=== PATIENT | male | born 1980 | race American Indian/Alaskan Native ===

== ENCOUNTER 2018-04-30 14:28 | Inpatient (IN) | payer OTHER ==
--- NOTE | 2018-04-30 15:15 | Emergency Department Report ---
Chief Complaint: High BP Stated Complaint: RAPID HEART RATE, CHEST PAIN Time Seen by Provider: 04/30/18 15:05 - HPI History of Present Illness: PT IS 37 YO AA MALE WHO HAS NO MED INS AND A RESULT IS OFF HIS HIV MEDS AND BP MEDS. SUPPOSE TO BE ON TRUVADA, HCTZ AND ANOTHER ANTIVIRAL COMES TODAY WITH RAPID HR AND CP; STATES HE HAS THRUSH IN HIS MOUTH. POS NIGHT SWEATS. NO COUGH. 12 LEAD BIFAC. BLOCK, HR 110 WILL SEND TO MAIN ER FOR WORK UP - Exam Vital Signs: Vital Signs 04/30/18 14:31 Temperature 97.6 F Pulse Rate 115 H Respiratory 18 Rate Blood Pressure 161/98 O2 Sat by Pulse 100 Oximetry MSE screening note: Focused history and physical exam performed. Due to findings the following was ordered: ED Disposition for MSE Condition: Stable
[2018-04-30 15:24] LABS: Basophils % (Auto) 0.9 % (0.0-1.8); Eosinophils # (Auto) 0.1 K/mm3 (0.0-0.4); Eosinophils % (Auto) 3.3 % (0.0-4.3); Hematocrit 44.8 % (35.5-45.6); Hemoglobin 14.9 gm/dl (11.8-15.2); Lymphocytes # (Auto) 1.5 K/mm3 (1.2-5.4); Mean Corpuscular HGB Conc 33 % (32-34); Mean Corpuscular Volume 93 fl (84-94); Monocytes # (Auto) 0.3 K/mm3 (0.0-0.8); Monocytes % (Auto) 8.2 % (0.0-7.3); Platelet Count 139 K/mm3 (140-440); Red Blood Count 4.83 M/mm3 (3.65-5.03); Red Cell Distribution Width 13.9 % (13.2-15.2)
[2018-04-30 15:46] LABS: Alanine Aminotransferase 63 units/L (7-56); Albumin 3.6 g/dL (3.9-5); BUN/Creatinine Ratio 17; Blood Urea Nitrogen 19 mg/dL (9-20); Calcium 9.3 mg/dL (8.4-10.2); Hemolysis Index 19
--- NOTE | 2018-04-30 16:18 | XRay Report ---
FINAL REPORT PROCEDURE: Chest. TECHNIQUE: PA and lateral views. HISTORY: Cough. COMPARISON: No prior studies are available for comparison. FINDINGS: The heart and mediastinum appear normal. The lungs are clear and well expanded. There are no pleural effusions. There is a metallic BB in the left anterior chest wall. The regional skeleton appears inta ct. IMPRESSION: No evidence of acute cardiopulmonary disease. Soft tissue foreign body.
[2018-04-30 16:24] LABS: Bacteria,Urine 1+ /HPF (Negative); Bilirubin,Urine NEG (Negative); Blood,Urine MOD (Negative); Color,Urine Yellow (Yellow); Protein,Urine <15 mg/dL mg/dL (Negative); Sperm,Urine FEW /HPF (NP); Urobilinogen,Urine < 2.0 mg/dL (<2.0)
[2018-04-30 16:24] LABS: Chol/HDL Ratio 5.68 %; HDL Cholesterol 25 mg/dL (40-59); LDL Cholesterol,Direct 88 mg/dL (50-130)
--- NOTE | 2018-04-30 16:31 | Consultation ---
History of Present Illness Consult date: 04/30/18 Requesting physician: VINNIE BEGUM Consult reason: abnormal cardiac enzymes History of present illness: The pt is a 37 Yo male with a past medical history of HIV, HTN, RLE lymphedema, medical noncompliance. He is previously unknown to our practice. He presented with complaints of sore throat and "thrush" infection of his mouth. He also admits to generalized weakness and fatigue and intermittent palpitations for the past one month and "sinus congestion" for the past 3 weeks. He has not taken any prescription medications for the past 1 month (prescribed HCTZ and HIV medications). He denies any chest pain, SOB, n/v, diaphoresis, dizziness or syncope. He denies any prior cardiac evaluation. Troponin noted to be elevated x 1 and thus cardiology has been consulted. Past History Past Medical History: hypertension, other (HIV`) Medications and Allergies Allergies Allergy/AdvReac Type Severity Reaction Status Date / Time No Known Allergies Allergy Verified 05/06/15 23:56 Review of Systems Constitutional: fatigue, weakness, no weight loss, no weight gain, no fever, no chills, no sweats Ears, nose, mouth and throat: no ear pain, no nose pain, no sinus pressure, no sinus pain Cardiovascular: palpitations, high blood pressure, leg edema (chronic RLE lymphedema), no chest pain, no orthopnea, no edema, no syncope, no lightheadedne ss, no shortness of breath, no dyspnea on exertion Respiratory: no cough, no shortness of breath, no dyspnea on exertion, no congestion, no wheezing, no pain on inspiration Gastrointestinal: no abdominal pain, no nausea, no vomiting, no diarrhea, no constipation, no change in bowel habits Genitourinary Male: no dysuria, no hematuria, no flank pain, no discharge, no urinary frequency, no urinary hesitancy Musculoskeletal: no neck stiffness, no neck pain, no shooting arm pain, no arm numbness/tingling, no low back pain, no shooting leg pain Integumentary: no rash, no pruritis, no redness, no sores, no wounds Neurological: no head injury, no paralysis, no weakness, no parathesias, no numbness, no tingling, no seizures, no syncope Psychiatric: no anxiety Endocrine: no cold intolerance, no heat intolerance Hematologic/Lymphatic: no easy bruising, no easy bleeding Allergic/Immunologic: no urticaria, no wheezing Physical Examination Vital Signs Temp Pulse Resp BP Pulse Ox 97.6 F 115 H 18 161/98 100 04/30/18 14:31 04/30/18 14:31 04/30/18 14:31 04/30/18 14:31 04/30/18 14:31 General appearance: no acute distress HEENT: Positive: PERRL, Normocephaly, Mucus Membranes Moist Neck: Positive: neck supple, trachea midline Cardiac: Positive: Reg Rate and Rhythm, S1/S2 Lungs: Positive: clear to auscultation Neuro: Positive: Grossly Intact Abdomen: Positive: Soft. Negative: Tender Skin: Negative: Rash, Wound Musculoskeletal: No Pain Extremities: Present: edema (RLE lymphedema) Results 04/30/18 15:14 04/30/18 15:14 Cardiac Enzymes 04/30/18 Range/Units 15:14 AST 106 H (5-40) units/L Lipids 04/30/18 Range/Units 15:14 Triglycerides 238 H (2-149) mg/dL Cholesterol 142 (50-199) mg/dL HDL Cholesterol 25 L (40-59) mg/dL Cholesterol/HDL Ratio 5.68 % CBC 04/30/18 Range/Units 15:14 WBC 3.9 L (4.5-11.0) K/mm3 RBC 4.83 (3.65-5.03) M/mm3 Hgb 14.9 (11.8-15.2) gm/dl Hct 44.8 (35.5-45.6) % Plt Count 139 L (140-440) K/mm3 Lymph # 1.5 (1.2-5.4) K/mm3 [place] # 0.3 (0.0-0.8) K/mm3 Eos # 0.1 (0.0-0.4) K/mm3 Baso # 0.0 (0.0-0.1) K/mm3 Comprehensive Metabolic Panel 04/30/18 Range/Units 15:14 Sodium 136 L (137-145) mmol/L Potassium 4.5 (3.6-5.0) mmol/L Chloride 98.1 (98-107) mmol/L Carbon Dioxide 29 (22-30) mmol/L BUN 19 (9-20) mg/dL Creatinine 1.1 (0.8-1.5) mg/dL Glucose 75 (75-100) mg/dL Calcium 9.3 (8.4-10.2) mg/dL AST 106 H (5-40) units/L ALT 63 H (7-56) units/L Alkaline Phosphatase 72 (35-129) units/L Total Protein 10.2 H (6.3-8.2) g/dL Albumin 3.6 L (3.9-5) g/dL - Imaging and Cardiology Echo: pending EKG: report reviewed, image reviewed EKG interpretations - Telemetry EKG Rhythm: Sinus Rhythm - EKG Sinus rhythms and dysrhythmias: sinus rhythm AV and intraventricular conduction: right bundle branch block Assessment and Plan ECG with no acute ischemic changes, pt denies chest pain. Repeat troponin. If troponin remains elevated, recommend heparinization and ischemic evaluation in AM (stress v. LHC). Obtain echo. Optimize anti-hypertensive regimen. The patient has been seen in conjunction with Dr. ALFA Sanchez who agrees with the assessment and plan of care. - Patient Problems (1) Elevated troponin Current Visit: Yes Status: Acute (2) Palpitations Current Visit: Yes Status: Acute (3) Thrush, oral Current Visit: Yes Status: Acute (4) RBBB Current Visit: Yes Status: Acute (5) Uncontrolled hypertension Current Visit: Yes Status: Chronic (6) HIV (human immunodeficiency virus infection) Current Visit: Yes Status: Chronic (7) Medical non-compliance Current Visit: Yes Status: Chronic (8) Elevated liver enzymes Current Visit: Yes Status: Acute (9) Elevated TSH Current Visit: Yes Status: Acute
--- NOTE | 2018-04-30 16:52 | Emergency Department Report ---
HPI - General Chief Complaint: High BP Time Seen by Provider: 04/30/18 15:05 - HPI HPI: 37-year-old male presents to the emergency department with a few different complaints including elevated blood pressure, palpitations, thrush and some chronic abdominal pains. The patient has a history of hypertension and HIV and admits to medication noncompliance for the past year. The palpitations, thrush and elevated blood pressure have been more recent but he says that the abdominal pain has been going on for the past 4-6 months. He does not have any primary care or infectious disease physicians. He has not taken anything for his symptoms prior to presentation. No recent travel or sick contacts at home. He denies any chest pain, shortness of breath, fever, nausea or vomiting. ED Past Medical Hx - Past Medical History Previous Medical History?: Yes Hx Hypertension: Yes Hx HIV: Yes (no treatment) Additional medical history: lymphedema - Surgical History Past Surgical History?: No - Social History Smoking Status: Current Every Day Smoker Substance Use Type: Alcohol - Medications Home Medications: Home Medications Medication Instructions Recorded Confirmed Last Taken Type RX: No Known Home Medications [No 04/30/18 04/30/18 Unknown History Reported Home Medications] ED Review of Systems ROS: Stated complaint: RAPID HEART RATE, CHEST PAIN Other details as noted in HPI Comment: All other systems reviewed and negative Constitutional: denies: chills, fever Eyes: denies: eye pain, vision change ENT: throat pain (thrush), congestion Respiratory: denies: cough, shortness of breath Cardiovascular: palpitations. denies: chest pain, edema Gastrointestinal: abdominal pain (chronic). denies: vomiting Genitourinary: denies: urgency, dysuria Musculoskeletal: denies: back pain, arthralgia Skin: denies: rash, lesions Neurological: denies: headache, weakness Physical Exam - Physical Exam Vital Signs: Vital Signs 04/30/18 04/30/18 04/30/18 14:31 16:28 16:30 Temperature 97.6 F Pulse Rate 115 H 93 H Respiratory 18 15 19 Rate Blood Pressure 161/98 115/84 O2 Sat by Pulse 100 Oximetry Physical Exam: GENERAL: The patient is well-developed well-nourished. HEENT: Normocephalic. Atraumatic. Patient has moist mucous membranes. Oropharynx is clear without any tonsillar hypertrophy, erythema or exudates. EYES: Extraocular motions are intact. Pupils are equal and reactive to light bilaterally. NECK: Supple. Trachea is midline. CHEST/LUNGS: Clear to auscultation. There is no respiratory distress noted. HEART/CARDIOVASCULAR: Regular. There is mild tachycardia. There is no obvious murmur. ABDOMEN: Abdomen is soft, nontender. Patient has normal bowel sounds. There is no abdominal distention. SKIN: Skin is warm and dry. NEURO: The patient is awake, alert, and oriented. The patient is cooperative. The patient has no focal neurologic deficits. The patient has normal speech. MUSCULOSKELETAL: There is no tenderness or deformity. There is no limitation range of motion. There is no evidence of acute injury. ED Course Vital Signs 04/30/18 04/30/18 04/30/18 14:31 16:28 16:30 Temperature 97.6 F Pulse Rate 115 H 93 H Respiratory 18 15 19 Rate Blood Pressure 161/98 115/84 O2 Sat by Pulse 100 Oximetry ED Medical Decision Making - Lab Data Result diagrams: 04/30/18 15:14 04/30/18 15:14 - EKG Data -: EKG Interpreted by Vt EKG shows normal: sinus rhythm, axis, intervals, QRS complexes (right bundle branch block and left posterior fascicular block) Rate: tachycardia (107 bpm) - EKG Data When compared to previous EKG there are: previous EKG unavailable Interpretation: other (sinus tachycardia, right bundle branch block, left posterior fascicular block) - Radiology Data Radiology results: report reviewed, image reviewed interpreted by me: Chest x-ray does not show any pneumothorax, pleural effusion, pneumonia or obvious focal consolidation. PROCEDURE: CT angiogram chest with contrast. TECHNIQUE: Computerized tomographic angiography of the chest was performed after the IV injection of iodinated nonionic contrast including image processing. The image data was postprocessed using 2- dimensional multiplanar reformatted (MPR) and 3-dimensional (MIP and/or volume rendered) techniques. HISTORY: Chest pain, elevated D-dimer. COMPARISON: No prior studies are available for comparison. FINDINGS: The trachea and central bronchi appear normal. The lungs are clear and well expanded. There are no pleural effusions. The thoracic aorta has a normal caliber without evidence of dissection. The pulmonary arteries enhance normally. There are no filling defects to indicate pulmonary embolism. There is no mediastinal adenopathy. The heart size is normal. There is a suggestion of a low- attenuation lesion within the right lobe of the liver. This study was not designed to evaluate the liver and this is not a definite finding. This is seen on image 98 of series 2. A cavernous hemangioma is 1 possibility if the lesion is real. An ultrasound would be a simple means of further evaluation. The thoracic skeleton appears intact. IMPRESSION: No evidence of pulmonary embolism. Question vague area of diminished attenuation in the liver as discussed above. Transcribed By: MRM Dictated By: KATIE LEAL MD Electronically Authenticated By: KATIE LEAL MD Signed Date/Time: 04/30/182026 - Medical Decision Making This HIV positive patient presents with complaint of some palpitations, concern for thrush and some issues with uncontrolled blood pressure medication noncompliance. Patient was found to have a first positive troponin of 1.0. This was repeated within 1.5 hours to make sure there was not a fluke lab abnormality but the second/repeated troponin came back at 1.1. The patient does not complain of any chest pain at this time. He was seen in the emergency department by the cardiology service. Since the troponin did come back elevated and appears valid, the patient was placed on heparin drip and will be admitted to the hospital for further evaluation. The patient has been accepted for admission by the hospitalist, Dr. Mckeon. - Differential Diagnosis NSTEMI, Dysrythmia, AIDS, Pneumonia Critical Care Time: Yes Critical care time in (mins) excluding proc time.: 31 Critical care attestation.: If time is entered above; I have spent that time in minutes in the direct care of this critically ill patient, excluding procedure time. Critical care time spent on this patient during his initial evaluation, multiple evaluations, ordering an interpretation of labs and imaging, discussion with the cardiology and hospitalist services. Critical Care Time: 31 minutes ED Disposition Clinical Impression: Palpitations, Elevated troponin, NSTEMI (non-ST elevated myocardial infarction) HIV (human immunodeficiency virus infection) Qualifiers: HIV symptom status: unspecified Qualified Code(s): B20 - Human immunodeficiency virus [HIV] disease Disposition: OP ADMIT IP TO THIS HOSP Is pt being admited?: Yes Condition: Fair
[2018-04-30] MEDS ORDERED: HEPARIN 10,000 UNITS/10 ML IV ONE (18:00)
--- NOTE | 2018-04-30 18:14 | History and Physical Report ---
History of Present Illness Chief complaint: I dont feel good History of present illness: 37 YO Male with Nicotine Dependence, HIV, HTN, Medication Noncompliance presents to ED for evaluation. Pt states that he has not been feeling well for the past 3-4 weeks. Pt reports chest palpitations, elevated blood pressure, abdominal discomfort, and pain upon swallowing. Pt acknowledges noncompliance with all medication for the past 1 year. Pt transported to [facility] for further care and evaluation. Pt seen and evaluated in ED and found to have Elevated troponin consistent with NSTEMI. Cardiology consulted in ED. Pt initiated on heparin drip protocol, and admitted to telemetry. Pt denies fever, chills, CP, NVD, Trauma, BRBPR, productive cough, or recent ill contacts. Past History Past Medical History: HIV/AIDS, hypertension, other (HIV`) Past Surgical History: No surgical history (reviewed) Social history: single, smoking. denies: prescription drug abuse, IV drug use Family history: hypertension Medications and Allergies Allergies Allergy/AdvReac Type Severity Reaction Status Date / Time No Known Allergies Allergy Verified 05/06/15 23:56 Home Medications Medication Instructions Recorded Confirmed Last Taken Type No Known Home Medications [No 04/30/18 04/30/18 Unknown History Reported Home Medications] Active Meds: Active Medications Heparin Sodium/Sodium Chloride (Heparin/ 0.45% Nacl-25,000 Unit/500 Ml) 25,000 unit in 500 mls @ 25.583 mls/hr IV TITRATE ANITRA; Protocol Review of Systems Constitutional: no weight loss, no weight gain, no fever Ears, nose, mouth and throat: odynophagia, no ear pain, no ear discharge, no decreased hearing, no nasal congestion Cardiovascular: palpitations, no chest pain, no orthopnea, no dyspnea on exertion, no paroxysmal nocturnal dyspnea Respiratory: no cough, no cough with sputum, no excessive sputum Gastrointestinal: no nausea, no vomiting, no diarrhea Genitourinary Male: no hematuria, no flank pain, no discharge Rectal: no pain, no incontinence, no bleeding Musculoskeletal: no neck stiffness, no neck pain, no shooting arm pain, no arm numbness/tingling Integumentary: no rash, no pruritis, no redness, no sores, no wounds Neurological: no transient paralysis, no paralysis, no weakness, no parathesias, no numbness Psychiatric: no anxiety, no memory loss, no change in sleep habits, no sleep disturbances, no insomnia Endocrine: no cold intolerance, no heat intolerance, no polyphagia, no excessive thirst Hematologic/Lymphatic: no easy bruising, no easy bleeding Allergic/Immunologic: no urticaria, no allergic rhinitis, no wheezing Exam - Constitutional Vitals: Temp Pulse Resp BP Pulse Ox 97.6 F 90 14 122/83 94 04/30/18 14:31 04/30/18 17:15 04/30/18 17:15 04/30/18 17:15 04/30/18 17:15 General appearance: Present: mild distress - EENT Eyes: Present: PERRL ENT: hearing intact, clear oral mucosa - Neck Neck: Present: supple, normal ROM - Respiratory Respiratory effort: normal Respiratory: bilateral: CTA - Cardiovascular Heart Sounds: Present: S1 & S2. Absent: rub, click - Extremities Extremities: pulses symmetrical, No edema Peripheral Pulses: within normal limits - Abdominal General gastrointestinal: Present: soft, non-tender, non-distended, normal bowel sounds Male genitourinary: Present: normal - Integumentary Integumentary: Present: clear, warm, dry - Musculoskeletal Musculoskeletal: gait normal, strength equal bilaterally - Psychiatric Psychiatric: appropriate mood/affect, intact judgment & insight - Neurologic Neurologic: CNII-XII intact, moves all extremities Results - Labs CBC & Chem 7: 04/30/18 15:14 04/30/18 15:14 Labs: Abnormal lab results 04/30/18 04/30/18 04/30/18 Range/Units 15:14 15:14 15:14 WBC 3.9 L (4.5-11.0) K/mm3 Plt Count 139 L (140-440) K/mm3 Lymph % (Auto) 38.0 H (13.4-35.0) % [place] % (Auto) 8.2 H (0.0-7.3) % D-Dimer (0-234) ng/mlDDU Sodium 136 L (137-145) mmol/L AST 106 H (5-40) units/L ALT 63 H (7-56) units/L Troponin T 1.000 H* (0.00-0.029) ng/mL Total Protein 10.2 H (6.3-8.2) g/dL Albumin 3.6 L (3.9-5) g/dL Triglycerides 238 H (2-149) mg/dL HDL Cholesterol 25 L (40-59) mg/dL TSH 4.510 H (0.270-4.200) mlU/mL 04/30/18 04/30/18 Range/Units 16:28 17:21 WBC (4.5-11.0) K/mm3 Plt Count (140-440) K/mm3 Lymph % (Auto) (13.4-35.0) % [place] % (Auto) (0.0-7.3) % D-Dimer 1408.77 H (0-234) ng/mlDDU Sodium (137-145) mmol/L AST (5-40) units/L ALT (7-56) units/L Troponin T 1.110 H* (0.00-0.029) ng/mL Total Protein (6.3-8.2) g/dL Albumin (3.9-5) g/dL Triglycerides (2-149) mg/dL HDL Cholesterol (40-59) mg/dL TSH (0.270-4.200) mlU/mL Assessment and Plan - Patient Problems (1) NSTEMI (non-ST elevated myocardial infarction) Current Visit: Yes Status: Acute Plan to address problem: Admit to telemetry, cardiology consulted in ED, initiated heparin drip therapy, serial cardiac enzymes, supportive care (2) Nicotine dependence Current Visit: Yes Status: Acute Qualifiers: Nicotine product type: cigarettes Plan to address problem: smoking cessation counseling, supportive care. (3) HIV (human immunodeficiency virus infection) Current Visit: Yes Status: Chronic Plan to address problem: Outpatient ID F/U care, Pt counseled regarding medication noncompliance (4) DVT prophylaxis Current Visit: Yes Status: Acute Plan to address problem: SCD to BLE while in bed
[2018-04-30] MEDS ORDERED: PERCOCET 5/325 PO PRN (18:17)
[2018-04-30] MEDS ORDERED: SODIUM CHLORIDE FLUSH SYRINGE 10 ML IV PRN (18:17)
[2018-04-30] MEDS ORDERED: PROVENTIL IH PRN (18:17)
[2018-04-30] MEDS ORDERED: ZOFRAN IV PRN (18:17)
[2018-04-30] MEDS ORDERED: TYLENOL PO PRN (18:17)
[2018-04-30 18:27] LABS: INR 0.94 (0.87-1.13)
[2018-04-30 18:28] LABS: Partial Thromboplastin Time 34.8 Sec. (24.2-36.6)
[2018-04-30] MEDS: HEPARIN/ 0.45% NACL-25,000 UNIT/500 ML 25,000 UNIT/500 ML BAG IV SCH (19:45)
--- NOTE | 2018-04-30 20:27 | Cat Scan Report ---
FINAL REPORT PROCEDURE: CT angiogram chest with contrast. TECHNIQUE: Computerized tomographic angiography of the chest was performed after the IV injection of iodinated nonionic contrast including image processing. The image data was postprocessed using 2-dim ensional multiplanar reformatted (MPR) and 3-dimensional (MIP and/or volume rendered) techniques. HISTORY: Chest pain, elevated D-dimer. COMPARISON: No prior studies are available for comparison. FINDINGS: The trachea and central bronchi appear normal. The lungs are clear and well expanded. There are no pl eural effusions. The thoracic aorta has a normal caliber without evidence of dissection. The pulmonar y arteries enhance normally. There are no filling defects to indicate pulmonary embolism. There is no mediastinal adenopathy. The heart size is normal. There is a suggestion of a low-attenuation lesion within the right lobe of the liver. This study was not designed to evaluate the liver and this is not a definite finding. This is seen on image 98 of series 2. A cavernous hemangioma is 1 possibility if the lesion is real. An ultrasound would be a simple means of further evaluation. The thoracic skelet on appears intact. IMPRESSION: No evidence of pulmonary embolism. Question vague area of diminished attenuation in the liver as disc ussed above.
[2018-04-30] MEDS: SODIUM CHLORIDE FLUSH SYRINGE 10 ML IV SCH (21:14)
[2018-05-01] MEDS: SODIUM CHLORIDE FLUSH SYRINGE 10 ML IV SCH ×2 (09:44→21:54)
--- NOTE | 2018-05-01 10:13 | Progress Note ---
Assessment and Plan Assessment and plan: NSTEMI. Patient with elevated troponin. Cardiology following. Follow-up echocardiogram. The echocardiogram is abnormal with reduced EF, we'll likely proceed with catheterization. However if echocardiogram normal, plans for stress thallium in a.m. I discussed case with cardiology. Oral candidiasis. Diflucan. Accelerated hypertension. Continue anti-hypertensive medications. HIV. Medical noncompliance. Patient has been counseled with the importance of medications. Hypothyroidism. TSH elevated. Check T3-T4. Consider starting Synthroid. History Interval history: No new issues overnight. Hospitalist Physical - Constitutional Vitals: Temp Pulse Resp BP Pulse Ox 98.5 F 86 16 129/85 97 05/01/18 07:30 05/01/18 07:30 05/01/18 07:30 05/01/18 07:30 05/01/18 07:30 General appearance: Present: mild distress - EENT Eyes: Present: PERRL, EOM intact ENT: hearing intact, clear oral mucosa, dentition normal - Neck Neck: Present: supple, normal ROM - Respiratory Respiratory effort: normal Respiratory: bilateral: CTA - Cardiovascular Rhythm: regular Heart Sounds: Present: S1 & S2. Absent: gallop, rub - Extremities Extremities: no ischemia, No edema, Full ROM - Abdominal General gastrointestinal: soft, non-tender, non-distended, normal bowel sounds - Integumentary Integumentary: Present: clear, warm, dry - Neurologic Neurologic: CNII-XII intact, moves all extremities Results - Labs CBC & Chem 7: 04/30/18 15:14 04/30/18 15:14 Labs: Laboratory Last Values WBC 3.9 K/mm3 (4.5-11.0) L 04/30/18 15:14 RBC 4.83 M/mm3 (3.65-5.03) 04/30/18 15:14 Hgb 14.9 gm/dl (11.8-15.2) 04/30/18 15:14 Hct 44.8 % (35.5-45.6) 04/30/18 15:14 MCV 93 fl (84-94) 04/30/18 15:14 MCH 31 pg (28-32) 04/30/18 15:14 MCHC 33 % (32-34) 04/30/18 15:14 RDW 13.9 % (13.2-15.2) 04/30/18 15:14 Plt Count 139 K/mm3 (140-440) L 04/30/18 15:14 Lymph % (Auto) 38.0 % (13.4-35.0) H 04/30/18 15:14 [place] % (Auto) 8.2 % (0.0-7.3) H 04/30/18 15:14 Eos % (Auto) 3.3 % (0.0-4.3) 04/30/18 15:14 Baso % (Auto) 0.9 % (0.0-1.8) 04/30/18 15:14 Lymph # 1.5 K/mm3 (1.2-5.4) 04/30/18 15:14 [place] # 0.3 K/mm3 (0.0-0.8) 04/30/18 15:14 Eos # 0.1 K/mm3 (0.0-0.4) 04/30/18 15:14 Baso # 0.0 K/mm3 (0.0-0.1) 04/30/18 15:14 Seg Neutrophils % 49.6 % (40.0-70.0) 04/30/18 15:14 Seg Neutrophils # 1.9 K/mm3 (1.8-7.7) 04/30/18 15:14 PT 13.0 Sec. (12.2-14.9) 04/30/18 16:00 INR 0.94 (0.87-1.13) 04/30/18 16:00 APTT 34.8 Sec. (24.2-36.6) 04/30/18 16:00 D-Dimer 1408.77 ng/mlDDU (0-234) H 04/30/18 16:28 Heparin Anti-Xa Level 0.34 U.I./ml (0.3-0.7) 05/01/18 09:31 Sodium 136 mmol/L (137-145) L 04/30/18 15:14 Potassium 4.5 mmol/L (3.6-5.0) 04/30/18 15:14 Chloride 98.1 mmol/L (98-107) 04/30/18 15:14 Carbon Dioxide 29 mmol/L (22-30) 04/30/18 15:14 Anion Gap 13 mmol/L 04/30/18 15:14 BUN 19 mg/dL (9-20) 04/30/18 15:14 Creatinine 1.1 mg/dL (0.8-1.5) 04/30/18 15:14 Estimated GFR > 60 ml/min 04/30/18 15:14 BUN/Creatinine Ratio 17 % 04/30/18 15:14 Glucose 75 mg/dL (75-100) 04/30/18 15:14 Calcium 9.3 mg/dL (8.4-10.2) 04/30/18 15:14 Total Bilirubin 0.50 mg/dL (0.1-1.2) 04/30/18 15:14 AST 106 units/L (5-40) H 04/30/18 15:14 ALT 63 units/L (7-56) H 04/30/18 15:14 Alkaline Phosphatase 72 units/L (35-129) 04/30/18 15:14 Troponin T 1.110 ng/mL (0.00-0.029) H* 04/30/18 17:21 Total Protein 10.2 g/dL (6.3-8.2) H 04/30/18 15:14 Albumin 3.6 g/dL (3.9-5) L 04/30/18 15:14 Albumin/Globulin Ratio 0.5 % 04/30/18 15:14 Triglycerides 238 mg/dL (2-149) H 04/30/18 15:14 Cholesterol 142 mg/dL (50-199) 04/30/18 15:14 LDL Cholesterol Direct 88 mg/dL (50-130) 04/30/18 15:14 HDL Cholesterol 25 mg/dL (40-59) L 04/30/18 15:14 Cholesterol/HDL Ratio 5.68 % 04/30/18 15:14 TSH 4.510 mlU/mL (0.270-4.200) H 04/30/18 15:14 Urine Color Yellow (Yellow) 04/30/18 15:40 Urine Turbidity Clear (Clear) 04/30/18 15:40 Urine pH 6.0 (5.0-7.0) 04/30/18 15:40 Ur Specific [place] 1.009 (1.003-1.030) 04/30/18 15:40 Urine Protein <15 mg/dl mg/dL (Negative) 04/30/18 15:40 Urine Glucose (UA) Neg mg/dL (Negative) 04/30/18 15:40 Urine Ketones Neg mg/dL (Negative) 04/30/18 15:40 Urine Blood Mod (Negative) 04/30/18 15:40 Urine Nitrite Neg (Negative) 04/30/18 15:40 Urine Bilirubin Neg (Negative) 04/30/18 15:40 Urine Urobilinogen < 2.0 mg/dL (<2.0) 04/30/18 15:40 Ur Leukocyte Esterase Neg (Negative) 04/30/18 15:40 Urine WBC (Auto) 2.0 /HPF (0.0-6.0) 04/30/18 15:40 Urine RBC (Auto) 7.0 /HPF (0.0-6.0) 04/30/18 15:40 Urine Bacteria (Auto) 1+ /HPF (Negative) 04/30/18 15:40 Urine Sperm Few /HPF ([employer]) 04/30/18 15:40
--- NOTE | 2018-05-01 11:22 | Progress Note ---
Assessment and Plan Troponin elevated but pt. continues to deny chest pain and remains hemodynamically stable. Sinus rhythm on the monitor. Await echo findings. Plan for lexiscan thallium stress test in am. The patient has been seen in conjunction with Dr. ALFA Sanchez who agrees with the assessment and plan of care. - Patient Problems (1) Elevated troponin Current Visit: Yes Status: Acute (2) Palpitations Current Visit: Yes Status: Acute (3) Thrush, oral Current Visit: Yes Status: Acute (4) RBBB Current Visit: Yes Status: Acute (5) Uncontrolled hypertension Current Visit: Yes Status: Chronic (6) HIV (human immunodeficiency virus infection) Current Visit: Yes Status: Chronic (7) Medical non-compliance Current Visit: Yes Status: Chronic (8) Elevated liver enzymes Current Visit: Yes Status: Acute (9) Elevated TSH Current Visit: Yes Status: Acute Subjective Date of service: 05/01/18 Principal diagnosis: elevated troponin Interval history: The patient is resting in bed. Denies chest pain or shortness of breath. C/o occasional palpitations but remains in sinus rhythm on the monitor with HR 90s. No events noted overnight. Objective Last Vital Signs Temp 98.5 F 05/01/18 07:30 Pulse 86 05/01/18 07:30 Resp 16 05/01/18 07:30 BP 129/85 05/01/18 07:30 Pulse Ox 97 05/01/18 07:30 - Physical Examination General: No Apparent Distress HEENT: Positive: PERRL, Normocephaly, Mucus Membranes Moist Neck: Positive: neck supple, trachea midline Cardiac: Positive: Reg Rate and Rhythm, S1/S2 Lungs: Positive: clear to auscultation Neuro: Positive: Grossly Intact Abdomen: Positive: Soft. Negative: Tender Skin: Negative: Rash, Wound Musculoskeletal: No Pain Extremities: Present: edema (RLE lymphedema) - Labs and Meds Cardiac Enzymes 04/30/18 Range/Units 15:14 AST 106 H (5-40) units/L Coagulation 04/30/18 Range/Units 16:00 PT 13.0 (12.2-14.9) Sec. INR 0.94 (0.87-1.13) APTT 34.8 (24.2-36.6) Sec. Lipids 04/30/18 Range/Units 15:14 Triglycerides 238 H (2-149) mg/dL Cholesterol 142 (50-199) mg/dL HDL Cholesterol 25 L (40-59) mg/dL Cholesterol/HDL Ratio 5.68 % CBC 04/30/18 Range/Units 15:14 WBC 3.9 L (4.5-11.0) K/mm3 RBC 4.83 (3.65-5.03) M/mm3 Hgb 14.9 (11.8-15.2) gm/dl Hct 44.8 (35.5-45.6) % Plt Count 139 L (140-440) K/mm3 Lymph # 1.5 (1.2-5.4) K/mm3 [place] # 0.3 (0.0-0.8) K/mm3 Eos # 0.1 (0.0-0.4) K/mm3 Baso # 0.0 (0.0-0.1) K/mm3 Comprehensive Metabolic Panel 04/30/18 Range/Units 15:14 Sodium 136 L (137-145) mmol/L Potassium 4.5 (3.6-5.0) mmol/L Chloride 98.1 (98-107) mmol/L Carbon Dioxide 29 (22-30) mmol/L BUN 19 (9-20) mg/dL Creatinine 1.1 (0.8-1.5) mg/dL Glucose 75 (75-100) mg/dL Calcium 9.3 (8.4-10.2) mg/dL AST 106 H (5-40) units/L ALT 63 H (7-56) units/L Alkaline Phosphatase 72 (35-129) units/L Total Protein 10.2 H (6.3-8.2) g/dL Albumin 3.6 L (3.9-5) g/dL - Imaging and Cardiology EKG: report reviewed, image reviewed Echo: pending - Telemetry EKG Rhythm: Sinus Rhythm - EKG Sinus rhythms and dysrhythmias: sinus rhythm AV and intraventricular conduction: right bundle branch block
[2018-05-01] MEDS: DIFLUCAN PO SCH (14:21)
[2018-05-01] MEDS: HEPARIN/ 0.45% NACL-25,000 UNIT/500 ML 25,000 UNIT/500 ML BAG IV SCH (18:49)
[2018-05-02 05:44] LABS: Hematocrit 41.6 % (35.5-45.6); Mean Corpuscular HGB Conc 34 % (32-34); Mean Corpuscular Volume 92 fl (84-94); Platelet Count 130 K/mm3 (140-440); Red Blood Count 4.53 M/mm3 (3.65-5.03); Red Cell Distribution Width 13.7 % (13.2-15.2)
[2018-05-02 05:57] LABS: BUN/Creatinine Ratio 16; Blood Urea Nitrogen 21 mg/dL (9-20); Calcium 8.5 mg/dL (8.4-10.2); Hemolysis Index 9
[2018-05-02 06:59] LABS: Basophils % (Manual) 0 % (0.0-1.8); Eosinophils % (Manual) 0 % (0.0-4.3); Total Cells Counted 100
[2018-05-02 07:01] LABS: RBC Morphology Normal
[2018-05-02 07:02] LABS: Platelet Estimate Consistent w Auto
[2018-05-02] MEDS ORDERED: LEXISCAN IV ONE (09:23)
--- NOTE | 2018-05-02 09:27 | Discharge Summary ---
Providers - Providers Date of Admission: 04/30/18 18:17 Date of discharge: 05/02/18 Attending physician: WILLIAM LOO Primary care physician: CALLI CUEVAS Hospitalization Reason for admission: cp Condition: Fair Hospital course: 37 YO Male with Nicotine Dependence, HIV, HTN, Medication Noncompliance presents to ED for evaluation. Pt states that he has not been feeling well for the past 3-4 weeks [employer]. Pt reported chest palpitations and elevated blood pressure. The patient was admitted with diagnosis of chest pain and accelerated hypertension. The patient also was noted to have elevated d-dimer. However, CTA of the chest was negative for PE. The patient's blood pressure was treated with labetalol with good control. Cardiology was consulted for the chest pain and recommended echocardiogram. Echocardiogram revealed mild concentric left ventricular hypertrophy with systolic function normal and EF of 55-60%. Right ventricular global systolic function was also normal. Patient also underwent stress thallium and found to be negative we'll discharge home. Etiology of chest pain likely related to muriel esophagitis +/-GERD. The patient was also noted to have oral candidiasis and was treated with Diflucan. Patient will follow-up with GI as an outpatient. Dedicated discharge time 34 minutes. Disposition: DC-01 TO HOME OR SELFCARE Time spent for discharge: 34 - Discharge Diagnoses (1) Elevated TSH Status: Acute (2) Elevated troponin Status: Acute (3) Nicotine dependence Status: Acute Qualifiers: Nicotine product type: cigarettes (4) RBBB Status: Acute (5) Thrush, oral Status: Acute (6) HIV (human immunodeficiency virus infection) Status: Chronic Qualifiers: HIV symptom status: unspecified Qualified Code(s): B20 - Human immunodeficiency virus [HIV] disease (7) Medical non-compliance Status: Chronic (8) Uncontrolled hypertension Status: Chronic Core Measure Documentation - Palliative Care Palliative Care/ Comfort Measures: Not Applicable - Core Measures Any of the following diagnoses?: none Exam - Constitutional Vitals: Temp Pulse Resp BP Pulse Ox 98.1 F 89 18 141/94 100 05/02/18 07:36 05/02/18 07:36 05/02/18 07:36 05/02/18 07:36 05/02/18 07:36 General appearance: Present: no acute distress, well-nourished - EENT Eyes: Present: PERRL ENT: hearing intact, clear oral mucosa - Neck Neck: Present: supple, normal ROM - Respiratory Respiratory effort: normal Respiratory: bilateral: CTA - Cardiovascular Heart Sounds: Present: S1 & S2. Absent: rub, click - Extremities Extremities: pulses symmetrical, No edema Peripheral Pulses: within normal limits - Abdominal General gastrointestinal: Present: soft, non-tender, non-distended, normal bowel sounds Male genitourinary: Present: normal - Integumentary Integumentary: Present: clear, warm, dry - Musculoskeletal Musculoskeletal: gait normal, strength equal bilaterally - Psychiatric Psychiatric: appropriate mood/affect, intact judgment & insight - Neurologic Neurologic: CNII-XII intact, moves all extremities Plan Activity: no restrictions Weight Bearing Status: Full Weight Bearing Diet: regular Follow up with: CALLI CUEVAS MD [Primary Care Provider] - 3-5 Days MARIYA CHUNG MD [Staff Physician] - 7 Days EVAN KWONG MD [Staff Physician] - 7 Days Prescriptions: Fluconazole [Diflucan TAB] 200 mg PO QDAY #7 tablet oxyCODONE /ACETAMINOPHEN [Percocet 5/325 mg] 1 tab PO Q6H PRN #12 tablet PRN Reason: Pain, Moderate (4-6) Pantoprazole [Protonix] 40 mg PO QDAY #30 tablet
--- NOTE | 2018-05-02 11:00 | Progress Note ---
Assessment and Plan Echo reviewed - EF 55-60%, mod LVH, trace TR, trivial pericardial effusion. S/p lexiscan MPI stress test which was negative. Currently stable cardiac status. Pt may discharge home from cardiology standpoint. Recommend follow up in our office with Dr. ALFA Sanchez within 1-2 weeks of hospital discharge ([phone]). The patient has been seen in conjunction with Dr. Danny Sanchez who agrees with the assessment and plan of care. - Patient Problems (1) Elevated troponin Current Visit: Yes Status: Acute (2) Palpitations Current Visit: Yes Status: Acute (3) Thrush, oral Current Visit: Yes Status: Acute (4) RBBB Current Visit: Yes Status: Acute (5) Uncontrolled hypertension Current Visit: Yes Status: Chronic (6) HIV (human immunodeficiency virus infection) Current Visit: Yes Status: Chronic Qualifiers: HIV symptom status: unspecified Qualified Code(s): B20 - Human immunodeficiency virus [HIV] disease (7) Medical non-compliance Current Visit: Yes Status: Chronic (8) Elevated liver enzymes Current Visit: Yes Status: Acute (9) Elevated TSH Current Visit: Yes Status: Acute Subjective Date of service: 05/02/18 Principal diagnosis: elevated troponin Interval history: pt for stress test, no current complaints. Objective Last Vital Signs Temp 98.1 F 05/02/18 07:36 Pulse 104 H 05/02/18 10:06 Resp 18 05/02/18 07:36 BP 159/91 05/02/18 10:06 Pulse Ox 100 05/02/18 07:36 - Physical Examination General: No Apparent Distress HEENT: Positive: PERRL, Normocephaly, Mucus Membranes Moist Neck: Positive: neck supple, trachea midline Cardiac: Positive: Reg Rate and Rhythm, S1/S2 Lungs: Positive: clear to auscultation Neuro: Positive: Grossly Intact Abdomen: Positive: Soft. Negative: Tender Skin: Negative: Rash, Wound Musculoskeletal: No Pain Extremities: Present: edema (RLE lymphedema) - Labs and Meds CBC 05/02/18 Range/Units 05:01 WBC 4.1 L (4.5-11.0) K/mm3 RBC 4.53 (3.65-5.03) M/mm3 Hgb 14.0 (11.8-15.2) gm/dl Hct 41.6 (35.5-45.6) % Plt Count 130 L (140-440) K/mm3 Comprehensive Metabolic Panel 05/02/18 Range/Units 05:01 Sodium 137 (137-145) mmol/L Potassium 4.3 (3.6-5.0) mmol/L Chloride 99.7 (98-107) mmol/L Carbon Dioxide 27 (22-30) mmol/L BUN 21 H (9-20) mg/dL Creatinine 1.3 (0.8-1.5) mg/dL Glucose 83 (75-100) mg/dL Calcium 8.5 (8.4-10.2) mg/dL - Imaging and Cardiology EKG: report reviewed, image reviewed Echo: report reviewed - Telemetry EKG Rhythm: Sinus Rhythm - EKG Sinus rhythms and dysrhythmias: sinus rhythm AV and intraventricular conduction: right bundle branch block
--- NOTE | 2018-05-02 12:28 | Treadmill Report ---
NUCLEAR PERFUSION SCAN REFERRING PHYSICIAN: Zen Toure M.D. PROTOCOL: The patient was brought to the stress lab in a postabsorptive state, given 10 mCi of technetium 99m at rest. The patient underwent rest imaging. The patient underwent Lexiscan stress test per standard protocol. At peak stress, given 31 mCi of technetium 99m shortly after stress imaging. Raw imaging reveals mild GI artifact. No significant motion artifact. SPECT imaging examined carefully in horizontal long axis, vertical long axis, and short axis views. There is normal homogenous uptake of radioisotope in all reported segments. No evidence of a significant fixed or reversible perfusion defects suggestive of prior infarction or ischemia. Gated wall motion reveals normal systolic thickening, calculated ejection fraction 56%. No TID. CONCLUSIONS: 1. Normal nuclear perfusion scan without evidence of active ischemia or prior infarction. 2. Normal left ventricular systolic performance without evidence of transient ischemic dilatation or stress-induced segmental wall motion abnormalities. JOB# [id number] LEIDA/KEIRA
[2018-05-02] MEDS: SODIUM CHLORIDE FLUSH SYRINGE 10 ML IV SCH (14:17)
[2018-05-02] MEDS: DIFLUCAN PO SCH (14:17)
[2018-05-02 16:30] VITALS: BP 126/90
[2018-05-03 20:34] LABS: CD4/CD8 Ratio 0.32 (0.86-5.00)
== END 2018-05-02 18:00 | disposition home or self-care (01) | DRG 281 ==
LOC: ED 14:28 → 4A 18:17
PROVIDERS: ADMIT Internal Medicine; ATTEND Hospitalist
DX: I21.4 Non-ST elevation (NSTEMI) myocardial infarction (principal); B37.0 Candidal stomatitis; B20 Human immunodeficiency virus [HIV] disease; B37.81 Candidal esophagitis; I45.10 Unspecified right bundle-branch block; K21.9 Gastro-esophageal reflux disease without esophagitis; F17.210 Nicotine dependence, cigarettes, uncomplicated; I10 Essential (primary) hypertension; E03.9 Hypothyroidism, unspecified; Z91.14 Patient's other noncompliance with medication regimen; Z71.6 Tobacco abuse counseling; Z71.89 Other specified counseling; Z82.49 Family history of ischemic heart disease and other diseases of the circulatory system; Z72.89 Other problems related to lifestyle
CPT/HCPCS: 36415; 71046; 71275; 78452; 80048; 80053; 80061; 81001; 82024; 84439; 84443; 84481; 84484; 85007; 85025; 85379; 85520; 85610; 85730; 93005; 93010; 93017; 93306; G0378; A9502; J1644; J2785; Q9967

== ENCOUNTER 2018-08-01 09:52 | Emergency (ER) | payer OTHER ==
[2018-08-01 09:59] VITALS: BP 124/79
--- NOTE | 2018-08-01 10:22 | Emergency Department Report ---
ED General Adult HPI - General Chief complaint: Back Pain/Injury Stated complaint: HBP/PAIN IN LEGS Time Seen by Provider: 08/01/18 10:11 Source: patient Mode of arrival: Ambulatory Limitations: No Limitations - History of Present Illness Initial comments: Mr. Pelletier presents with generalized malaise and lymphedema. Has had chest burning at night. Mild dysnpea at night. Denies fever or cough. Lymphedema in legs have worsened. According to EMR, hx of HIV, HTN, and tobacco abuse. According to EMR echocardiogram obtained in April ejection fraction 55-60%. Myocardial perfusion scan normal negative for ischemia. CTA chest negative for pulmonary embolism at that time. -: Gradual, month(s) (several ) Location: chest, left, right, lower extremity Quality: burning, aching Consistency: other (worse at night) Improves with: none Worsens with: none Associated Symptoms: malaise - Related Data Previous Rx's Medication Instructions Recorded Last Taken Type Fluconazole [Diflucan TAB] 200 mg PO QDAY #7 tablet 05/02/18 Unknown Rx Labetalol [Normodyne TAB] 200 mg PO BID #60 tablet 05/02/18 Unknown Rx Levothyroxine Sodium [Synthroid] 50 mcg PO DAILY #30 tablet 05/02/18 Unknown Rx Pantoprazole [Protonix] 40 mg PO QDAY #30 tablet 05/02/18 Unknown Rx hydroCHLOROthiazide [HCTZ] 25 mg PO QDAY #30 tablet 05/02/18 Unknown Rx oxyCODONE /ACETAMINOPHEN [Percocet 1 tab PO Q6H PRN #12 tablet 05/02/18 Unknown Rx 5/325 mg] Allergies Allergy/AdvReac Type Severity Reaction Status Date / Time No Known Allergies Allergy Verified 05/06/15 23:56 ED Review of Systems ROS: Stated complaint: HBP/PAIN IN LEGS Other details as noted in HPI Comment: All other systems reviewed and negative Constitutional: malaise Respiratory: shortness of breath Cardiovascular: chest pain ED Past Medical Hx - Past Medical History Previous Medical History?: Yes Hx Hypertension: Yes Hx HIV: Yes (no treatment) Additional medical history: lymphedema - Surgical History Past Surgical History?: No - Social History Smoking Status: Current Every Day Smoker Substance Use Type: None - Medications Home Medications: Home Medications Medication Instructions Recorded Confirmed Last Taken Type Fluconazole [Diflucan TAB] 200 mg PO QDAY #7 tablet 05/02/18 Unknown Rx Labetalol [Normodyne TAB] 200 mg PO BID #60 tablet 05/02/18 Unknown Rx Levothyroxine Sodium [Synthroid] 50 mcg PO DAILY #30 tablet 05/02/18 Unknown Rx Pantoprazole [Protonix] 40 mg PO QDAY #30 tablet 05/02/18 Unknown Rx hydroCHLOROthiazide [HCTZ] 25 mg PO QDAY #30 tablet 05/02/18 Unknown Rx oxyCODONE /ACETAMINOPHEN [Percocet 1 tab PO Q6H PRN #12 tablet 05/02/18 Unknown Rx 5/325 mg] ED Physical Exam - General Limitations: No Limitations General appearance: alert, in no apparent distress - Head Head exam: Present: atraumatic, normocephalic - Eye Eye exam: Present: normal appearance - ENT ENT exam: Present: mucous membranes moist - Neck Neck exam: Present: normal inspection, full ROM - Respiratory Respiratory exam: Present: normal lung sounds bilaterally. Absent: respiratory distress, wheezes, rales, rhonchi - Cardiovascular Cardiovascular Exam: Present: regular rate, normal rhythm, normal heart sounds. Absent: systolic murmur, diastolic murmur, rubs, gallop - GI/Abdominal GI/Abdominal exam: Present: soft, normal bowel sounds. Absent: distended, tenderness, guarding, rebound - Rectal Rectal exam: Present: deferred - Extremities Exam Extremities exam: Present: normal inspection - Back Exam Back exam: Present: normal inspection - Neurological Exam Neurological exam: Present: alert, oriented X3 - Psychiatric Psychiatric exam: Present: normal affect, normal mood - Skin Skin exam: Present: warm, dry, intact, normal color. Absent: rash ED Course Vital Signs 08/01/18 09:58 Temperature 97.8 F Pulse Rate 112 H Respiratory 16 Rate Blood Pressure 124/79 O2 Sat by Pulse 99 Oximetry ED Medical Decision Making - Medical Decision Making Mr. Pelletier presents with chest burning and leg swelling for several months. REcent evaluation during April hospital admission. Given referral to outside physician. Dc'd home Critical care attestation.: If time is entered above; I have spent that time in minutes in the direct care of this critically ill patient, excluding procedure time. ED Disposition Clinical Impression: Leg pain, bilateral, Chest pain Disposition: TO HOME OR SELFCARE Is pt being admited?: No Does the pt Need Aspirin: No Condition: Stable Instructions: Chest Pain (ED) Referrals: [facility] [place] MD SOL [Primary Care Provider] - 3-5 Days DRE SMITH DO [Staff Physician] - 3-5 Days
== END 2018-08-01 10:33 | disposition home or self-care (01) ==
LOC: ED 09:52
DX: M79.605 Pain in left leg (principal); M79.604 Pain in right leg; R07.89 Other chest pain; I10 Essential (primary) hypertension; F17.200 Nicotine dependence, unspecified, uncomplicated
CPT/HCPCS: 99282